=== PATIENT | female | born 1995 | race Hispanic/Latino ===

== ENCOUNTER 2017-07-05 23:02 | Emergency (ER) | payer MEDICAID, OTHER ==
[2017-07-05] MEDS ORDERED: DEXAMETHASONE SOD PHOSPHATE 4 MG/ML 5ML VIAL ONE (23:40)
[2017-07-05] MEDS ORDERED: METHYLPREDNISOLONE SOD SUCC 125MG/2ML VIAL ONE (23:41)
[2017-07-05] MEDS ORDERED: ONDANSETRON ODT 4 MG TAB ONE (23:41)
[2017-07-05] MEDS ORDERED: ACETAMINOPHEN-CODEINE ELIXIR 5 ML UDCUP ONE (23:41)
== END 2017-07-05 23:59 | disposition home or self-care (01) ==
LOC: EDH 23:02
DX: G43.909 Migraine, unspecified, not intractable, without status migrainosus (principal); R11.2 Nausea with vomiting, unspecified
CPT/HCPCS: 96372 ×2; 99284; J1100; J2930

== ENCOUNTER 2017-08-13 23:16 | Emergency (ER) | payer MEDICAID, OTHER ==
[2017-08-13] MEDS ORDERED: ONDANSETRON ODT 4 MG TAB ONE (23:34)
[2017-08-13] MEDS ORDERED: LIDOCAINE HCL 2% VISCOUS 15 ML UDCUP ONE (23:35)
[2017-08-13] MEDS ORDERED: ACETAMINOPHEN-CODEINE ELIXIR 5 ML UDCUP ONE (23:35)
[2017-08-13] MEDS ORDERED: MAGNESIUM HYDROXIDE 30 ML/UDCUP ONE (23:35)
== END 2017-08-13 23:40 | disposition home or self-care (01) ==
LOC: EDH 23:16
DX: K21.9 Gastro-esophageal reflux disease without esophagitis (principal); K29.70 Gastritis, unspecified, without bleeding; Z90.49 Acquired absence of other specified parts of digestive tract

== ENCOUNTER 2017-12-22 21:06 | Emergency (ER) | payer MEDICAID | END 2017-12-22 22:46 | disposition home or self-care (01) | LOC: EDH 21:06 | DX: Z46.89 Encounter for fitting and adjustment of other specified devices (principal); Z90.49 Acquired absence of other specified parts of digestive tract; Z98.890 Other specified postprocedural states; Z79.899 Other long term (current) drug therapy | CPT/HCPCS: 99281 ==

== ENCOUNTER 2018-08-04 22:27 | Emergency (ER) | payer MEDICAID ==
[2018-08-04] MEDS ORDERED: SODIUM CHLORIDE 0.9% 1000ML 1,000 ML IV ONE (22:58)
[2018-08-04 23:05] LABS: BASOPHILS % (AUTO) 1.5 % (0.0-5.0); EOSINOPHILS % (AUTO) 2.4 % (0.0-8.0); HEMATOCRIT 41.7 % (36-48); LYMPHOCYTES % (AUTO) 39.3 % (21.0-51.0); MEAN CORPUSCULAR HEMOGLOBIN 31.5 pg (27.0-33.0); MEAN CORPUSCULAR HGB CONC 34.2 g/dL (32.0-36.0); MONOCYTES % (AUTO) 4.1 % (3.0-13.0); NEUTROPHILS % (AUTO) 52.7 % (40.0-77.0); PLATELET COUNT (AUTO) 181 K/uL (130-400); RED BLOOD CELL COUNT(AUTO) 4.53 MIL/uL (4.00-5.50); RED CELL DISTRIBUTION WIDTH 12.7 % (11.0-15.5); WHITE BLOOD COUNT (AUTO) 7.7 K/uL (4.8-10.8)
[2018-08-04 23:21] LABS: CREATININE 0.7 mg/dL (0.5-1.5); POTASSIUM 3.9 mmol/L (3.5-5.1)
[2018-08-04 23:25] LABS: ALBUMIN 3.8 g/dL (3.5-5.0); BILIRUBIN,TOTAL 0.3 mg/dL (0.2-1.0); TOTAL PROTEIN, SERUM 7.8 g/dL (6.0-8.3)
[2018-08-04] MEDS ORDERED: DiphenhydrAMINE HCL 50 MG/ML VIAL ONE (23:32)
[2018-08-04] MEDS ORDERED: METOCLOPRAMIDE 10 MG/2 ML VIAL ONE (23:32)
[2018-08-04] MEDS ORDERED: KETOROLAC TROMETHAMINE 30MG/ML ONE (23:33)
== END 2018-08-05 00:40 | disposition home or self-care (01) ==
LOC: EDH 22:27
DX: G44.229 Chronic tension-type headache, not intractable (principal); R11.2 Nausea with vomiting, unspecified; Z90.49 Acquired absence of other specified parts of digestive tract; Z98.890 Other specified postprocedural states; Z72.0 Tobacco use
CPT/HCPCS: 36415; 80053; 81025; 85025; 96361; 96374; 96375; 99284; J1200; J1885; J2765; J7030

== ENCOUNTER 2018-09-30 21:52 | Emergency (ER) | payer MEDICAID ==
[2018-09-30] MEDS ORDERED: ONDANSETRON ODT 4 MG TAB ONE (23:08)
[2018-10-01] MEDS ORDERED: KETOROLAC TROMETHAMINE 60 MG/2 ML VIAL ONE (00:02)
[2018-10-01] MEDS ORDERED: DIPHENHYDRAMINE HCL 25 MG CAPSULE ONE (00:02)
[2018-10-01] MEDS ORDERED: METOCLOPRAMIDE 10 MG TABLET ONE (00:02)
== END 2018-10-01 00:29 | disposition home or self-care (01) ==
LOC: EDH 21:52
DX: K52.9 Noninfective gastroenteritis and colitis, unspecified (principal); G43.909 Migraine, unspecified, not intractable, without status migrainosus; Z90.49 Acquired absence of other specified parts of digestive tract
CPT/HCPCS: 81025; 96372; 99284; J1885; Q0163

== ENCOUNTER 2018-11-20 08:29 | Emergency (ER) | payer MEDICAID | END 2018-11-20 09:56 | disposition home or self-care (01) | LOC: EDH 08:29 | DX: S93.492A Sprain of other ligament of left ankle, initial encounter (principal); G43.909 Migraine, unspecified, not intractable, without status migrainosus; Z90.49 Acquired absence of other specified parts of digestive tract; X50.1XXA Overexertion from prolonged static or awkward postures, initial encounter; Y93.89 Activity, other specified; Y92.89 Other specified places as the place of occurrence of the external cause; Y99.8 Other external cause status | CPT/HCPCS: 73610 ==

== ENCOUNTER 2019-02-12 10:20 | Emergency (ER) | payer MEDICAID | END 2019-02-12 11:15 | disposition home or self-care (01) | LOC: EDH 10:20 | DX: K02.9 Dental caries, unspecified (principal); G43.909 Migraine, unspecified, not intractable, without status migrainosus; Z90.49 Acquired absence of other specified parts of digestive tract; Z72.0 Tobacco use ==

== ENCOUNTER 2019-04-03 02:21 | Emergency (ER) | payer MEDICAID ==
[2019-04-03 03:11] LABS: BILIRUBIN,URINE Negative (NEGATIVE); COLOR,URINE Yellow (YELLOW); GLUCOSE, URINE (UA) Negative (NEGATIVE); KETONES,URINE Negative (NEGATIVE); LEUKOCYTE ESTERASE ,URINE Small (NEGATIVE); NITRATE,URINE Negative (NEGATIVE); OCCULT BLOOD,URINE Negative (NEGATIVE); PROTEIN,URINE Negative (NEGATIVE)
[2019-04-03] MEDS ORDERED: FAMOTIDINE/PF 20 MG/2 ML VIAL IV ONE (03:17)
[2019-04-03] MEDS ORDERED: ONDANSETRON HCL 4 MG/2 ML VIAL ONE ×2 (03:17→05:34)
[2019-04-03] MEDS ORDERED: SODIUM CHLORIDE 0.9% 1000ML 1,000 ML IV ONE (03:17)
[2019-04-03 03:20] LABS: HCG,QUAL RESULT NEGATIVE (NEGATIVE)
[2019-04-03 03:26] LABS: BASOPHILS % (AUTO) 0.5 % (0.0-5.0); EOSINOPHILS % (AUTO) 1.5 % (0.0-8.0); HEMATOCRIT 42.3 % (36-48); LYMPHOCYTES % (AUTO) 31.2 % (21.0-51.0); MEAN CORPUSCULAR HEMOGLOBIN 30.8 pg (27.0-33.0); MEAN CORPUSCULAR HGB CONC 32.9 g/dL (32.0-36.0); MEAN CORPUSCULAR VOLUME 93.6 fL (79-99); MONOCYTES % (AUTO) 4.8 % (3.0-13.0); NEUTROPHILS % (AUTO) 61.7 % (40.0-77.0); PLATELET COUNT (AUTO) 208 K/uL (130-400); RED BLOOD CELL COUNT(AUTO) 4.52 MIL/uL (4.00-5.50); RED CELL DISTRIBUTION WIDTH 12.2 % (11.0-15.5); WHITE BLOOD COUNT (AUTO) 7.5 K/uL (4.8-10.8)
[2019-04-03 03:27] LABS: APPEARANCE,URINE SLIGHTLY CLOUDY (CLEAR)
[2019-04-03 03:29] LABS: CREATININE 0.7 mg/dL (0.5-1.5); POTASSIUM 3.9 mmol/L (3.5-5.1)
[2019-04-03 03:31] LABS: BACTERIA,URINE Rare /HPF (None Seen); MUCUS,URINE Rare LPF (None Seen); RBC,URINE 0-1 /HPF (0-1); SQUAMOUS EPITHELIAL CELL,UR Moderate /HPF (0-2); WBC,URINE 0-1 /HPF (0-1)
[2019-04-03 03:34] LABS: ALBUMIN 3.6 g/dL (3.5-5.0); BILIRUBIN,TOTAL 0.6 mg/dL (0.2-1.0); TOTAL PROTEIN, SERUM 7.9 g/dL (6.0-8.3)
[2019-04-03 03:59] LABS: AMPHET/METH SCREEN,URINE NEGATIVE (NEGATIVE); BARBITURATE SCREEN, URINE NEGATIVE (NEGATIVE); BENZODIAZEPINES SCREEN,URINE POSITIVE (NEGATIVE); CANNABINOID SCREEN,URINE NEGATIVE (NEGATIVE); COCAINE SCREEN,URINE NEGATIVE (NEGATIVE); OPIATE SCREEN,URINE NEGATIVE (NEGATIVE); PHENCYCLIDINE SCREEN,URINE NEGATIVE (NEGATIVE)
== END 2019-04-03 05:44 | disposition home or self-care (01) ==
LOC: EDH 02:21
DX: R10.84 Generalized abdominal pain (principal); R11.2 Nausea with vomiting, unspecified; R63.0 Anorexia; G43.909 Migraine, unspecified, not intractable, without status migrainosus; Z90.49 Acquired absence of other specified parts of digestive tract
CPT/HCPCS: 36415; 74177; 80053; 80305; 81001; 81025; 83690; 85025; 96361; 96374; 96375; 96376; 99285; J2405 ×2; J3490; J7030

== ENCOUNTER 2019-04-04 02:25 | Emergency (ER) | payer MEDICAID ==
[2019-04-04] MEDS ORDERED: ORPHENADRINE CITRATE 30 MG/ML ML ONE (02:46)
[2019-04-04] MEDS ORDERED: KETOROLAC TROMETHAMINE 60 MG/2 ML VIAL ONE (02:46)
== END 2019-04-04 03:04 | disposition home or self-care (01) ==
LOC: EDH 02:25
DX: T14.8XXA Other injury of unspecified body region, initial encounter (principal); M62.838 Other muscle spasm; M54.5 Low back pain; G43.909 Migraine, unspecified, not intractable, without status migrainosus; Z90.49 Acquired absence of other specified parts of digestive tract; Z72.0 Tobacco use; V89.2XXA Person injured in unspecified motor-vehicle accident, traffic, initial encounter; Y93.89 Activity, other specified; Y92.488 Other paved roadways as the place of occurrence of the external cause; Y99.8 Other external cause status
CPT/HCPCS: 96372 ×2; 99284; J1885; J2360

== ENCOUNTER 2019-10-18 20:50 | Emergency (ER) | payer MEDICAID ==
[2019-10-18 21:15] LABS: HCG,QUAL RESULT NEGATIVE (NEGATIVE)
[2019-10-18 21:16] LABS: APPEARANCE,URINE Clear (CLEAR); BILIRUBIN,URINE Negative (NEGATIVE); COLOR,URINE Yellow (YELLOW); GLUCOSE, URINE (UA) Negative (NEGATIVE); KETONES,URINE Negative (NEGATIVE); LEUKOCYTE ESTERASE ,URINE Negative (NEGATIVE); NITRATE,URINE Negative (NEGATIVE); OCCULT BLOOD,URINE Negative (NEGATIVE); PH,URINE 5.5 (5.0-8.0); PROTEIN,URINE Negative (NEGATIVE)
== END 2019-10-18 22:10 | disposition home or self-care (01) ==
LOC: EDH 20:50
DX: G43.909 Migraine, unspecified, not intractable, without status migrainosus (principal); F41.1 Generalized anxiety disorder; Z90.49 Acquired absence of other specified parts of digestive tract; Z32.01 Encounter for pregnancy test, result positive
CPT/HCPCS: 36415; 81003; 81025; 84702

== ENCOUNTER 2020-09-06 10:39 | Emergency (ER) | payer MEDICAID ==
[~2020-09-06] VITALS: Ht 167.6 cm; Wt 122.5 kg
[2020-09-06 10:40] VITALS: BP 131/59
[2020-09-06] MEDS ORDERED: HYDROCODONE/ACETAMINOPHEN 10/325 MG TAB PO SCH (13:00)
[2020-09-06] MEDS ORDERED: TRAM1TAB PO (13:54)
[2020-09-06] MEDS ORDERED: NAPR-1180 PO (13:54)
[2020-09-06 14:36] VITALS: BP 117/71
== END 2020-09-06 14:39 | disposition home or self-care (01) ==
LOC: EDH 10:39
DX: S93.401A Sprain of unspecified ligament of right ankle, initial encounter (principal); E66.9 Obesity, unspecified; Z79.899 Other long term (current) drug therapy; Z68.41 Body mass index [BMI] 40.0-44.9, adult; Z90.49 Acquired absence of other specified parts of digestive tract; X50.1XXA Overexertion from prolonged static or awkward postures, initial encounter; Y93.89 Activity, other specified; Y92.89 Other specified places as the place of occurrence of the external cause; Y99.8 Other external cause status
CPT/HCPCS: 36415; 73610; 73620; 84702

== ENCOUNTER 2021-06-16 14:27 | Emergency (ER) | payer BC, MEDICAID ==
[~2021-06-16] VITALS: Ht 167.6 cm; Wt 137.4 kg
[~2021-06-16 14:27] MED LIST: NAPR-1180 PO; TRAM1TAB2 PO
[2021-06-16] MEDS ORDERED: TETANUS/DIPHTHERIA TOXOID [ADULT] 0.5 ML VIAL IM ONE (15:00)
[2021-06-16] MEDS ORDERED: IBUPROFEN 600 MG TABLET PO ONE (15:00)
[2021-06-16] MEDS ORDERED: IBUP-2070 PO (15:25)
[2021-06-16 16:57] VITALS: BP 113/69
== END 2021-06-16 17:07 | disposition home or self-care (01) ==
LOC: EDH 14:27
DX: S93.401A Sprain of unspecified ligament of right ankle, initial encounter (principal); S80.211A Abrasion, right knee, initial encounter; J45.909 Unspecified asthma, uncomplicated; Z79.1 Long term (current) use of non-steroidal anti-inflammatories (NSAID); Z90.49 Acquired absence of other specified parts of digestive tract; W18.39XA Other fall on same level, initial encounter; Y93.89 Activity, other specified; Y92.89 Other specified places as the place of occurrence of the external cause; Y99.8 Other external cause status
CPT/HCPCS: 73562; 73600; 73650; 81025; 90471; 90714

== ENCOUNTER 2021-08-25 22:46 | Emergency (ER) | payer BC, MEDICAID ==
[~2021-08-25] VITALS: Ht 167.6 cm; Wt 140.6 kg
[~2021-08-25 22:46] MED LIST changes: +IBUP-2070 PO
[2021-08-26] MEDS ORDERED: KETOROLAC 15MG/ML VIAL (15MG/ML) IV ONE (04:30)
[2021-08-26] MEDS ORDERED: ONDANSETRON 4MG INJ IVP ONE (04:30)
[2021-08-26] MEDS ORDERED: 0.9%NACL 1000ML 1,000 ML IV ONE (04:30)
[2021-08-26 04:41] LABS: BASOPHILS % (AUTO) 0.6 % (0.0-5.0); EOSINOPHILS % (AUTO) 1.1 % (0.0-8.0); HEMATOCRIT 39.7 % (36-48); LYMPHOCYTES % (AUTO) 22.5 % (21.0-51.0); MEAN CORPUSCULAR VOLUME 91.1 fL (79-99); MONOCYTES % (AUTO) 5.3 % (3.0-13.0); PLATELET COUNT (AUTO) 145 K/uL (130-400); RED BLOOD CELL COUNT(AUTO) 4.36 MIL/uL (4.00-5.50); RED CELL DISTRIBUTION WIDTH 12.5 % (11.0-15.5); WHITE BLOOD COUNT (AUTO) 6.2 K/uL (4.8-10.8)
[2021-08-26 04:59] LABS: CREATININE 0.6 mg/dL (0.5-1.5); POTASSIUM 3.8 mmol/L (3.5-5.1)
[2021-08-26 05:03] LABS: ALBUMIN 3.6 g/dL (3.5-5.0); BILIRUBIN,TOTAL 0.5 mg/dL (0.2-1.0)
[2021-08-26 07:26] LABS: BILIRUBIN,URINE SMALL (NEGATIVE); COLOR,URINE YELLOW (YELLOW); GLUCOSE, URINE (UA) NEGATIVE (NEGATIVE); KETONES,URINE NEGATIVE (NEGATIVE); LEUKOCYTE ESTERASE ,URINE NEGATIVE (NEGATIVE); NITRATE,URINE NEGATIVE (NEGATIVE); OCCULT BLOOD,URINE NEGATIVE (NEGATIVE); PH,URINE 5.5 (5.0-8.0); PROTEIN,URINE NEGATIVE (NEGATIVE); UROBILINOGEN,URINE 0.2 mg/dL (0.2-1.0)
[2021-08-26 07:50] LABS: APPEARANCE,URINE SLIGHTLY CLOUDY (CLEAR)
[2021-08-26 07:59] LABS: BACTERIA,URINE Few /HPF (None Seen)
[2021-08-26 08:00] LABS: RBC,URINE 0-1 /HPF (0-1)
[2021-08-26] MEDS ORDERED: FAMOTIDINE 20MG VIAL IV ONE (08:30)
[2021-08-26] MEDS ORDERED: MORPHINE 4 MG SYG IVP ONE (08:30)
[2021-08-26 09:31] VITALS: BP 105/59
[2021-08-26] MEDS ORDERED: ONDA4TAB10 PO (09:34)
[2021-08-26] MEDS ORDERED: HYOS-27 SL (09:34)
[2021-08-26] MEDS ORDERED: FAMO-136 PO (09:34)
== END 2021-08-26 11:26 | disposition home or self-care (01) ==
LOC: EDH 22:46
DX: R50.9 Fever, unspecified (principal); R10.9 Unspecified abdominal pain; R11.10 Vomiting, unspecified; E66.01 Morbid (severe) obesity due to excess calories; Z68.43 Body mass index [BMI] 50.0-59.9, adult; Z20.822 Contact with and (suspected) exposure to COVID-19; Z79.899 Other long term (current) drug therapy
CPT/HCPCS: 36415; 74176; 80053; 81001; 83690; 84703; 85025; 87635; 87804 ×2; 96361; 96374; 96375; 99284; C9803; J1885; J2270; J2405; J3490; J7030

== ENCOUNTER 2022-10-28 19:50 | Emergency (ER) | payer BC, MEDICAID ==
[~2022-10-28] VITALS: Ht 167.6 cm; Wt 139.0 kg
[~2022-10-28 19:50] MED LIST changes: +FAMO-136 PO; +HYOS-27 SL; +ONDA4TAB10 PO
[2022-10-28] MEDS ORDERED: IBUPROFEN 800 MG TAB ONE (20:13)
[2022-10-28] MEDS ORDERED: IBUPROFEN 800 MG TAB PO ONE (20:30)
[2022-10-28 20:56] LABS: BASOPHILS # (AUTO) 0.05 K/uL (0.00-0.20); BASOPHILS % (AUTO) 0.5 % (0.0-5.0); EOSINOPHILS # (AUTO) 0.12 K/uL (0.00-0.70); EOSINOPHILS % (AUTO) 1.2 % (0.0-8.0); HEMATOCRIT 39.5 % (36-48); IMMATURE GRANULOCYTE ABSOLUTE 0.04 K/uL (0-1); LYMPHOCYTES # (AUTO) 2.4 K/uL (1.0-4.8); MEAN CORPUSCULAR HGB CONC 32.9 g/dL (32.0-36.0); MEAN CORPUSCULAR VOLUME 91.2 fL (79-99); MONOCYTES # (AUTO) 0.5 K/uL (0.1-1.0); MONOCYTES % (AUTO) 4.8 % (3.0-13.0); NEUTROPHILS # (AUTO) 7.2 K/uL (1.8-7.7); NEUTROPHILS % (AUTO) 70.1 % (40.0-77.0); PLATELET COUNT (AUTO) 167 K/uL (130-400); RED BLOOD CELL COUNT(AUTO) 4.33 MIL/uL (4.00-5.50); RED CELL DISTRIBUTION WIDTH 12.1 % (11.0-15.5); WHITE BLOOD COUNT (AUTO) 10.3 K/uL (4.8-10.8)
[2022-10-28] MEDS ORDERED: IOHEXOL-350 75 ML VIAL IV ONE (20:58)
[2022-10-28 21:03] LABS: CREATININE 0.7 mg/dL (0.5-1.5); POTASSIUM 3.6 mmol/L (3.5-5.1)
[2022-10-28 21:07] LABS: ALBUMIN 3.3 g/dL (3.5-5.0); BILIRUBIN,TOTAL 0.3 mg/dL (0.2-1.0); TOTAL PROTEIN, SERUM 7.4 g/dL (6.0-8.3)
[2022-10-28] MEDS ORDERED: ZOSYN 3.375GM +NS 50ML IVPB ONE (22:30)
[2022-10-28] MEDS ORDERED: VANCOMYCIN KIT 1 GM/250 ML IV.KIT IV ONE (22:30)
[2022-10-28] MEDS ORDERED: LIDOCAINE HCL 1% 20 ML VIAL INJ SCH (22:30)
[2022-10-28] MEDS ORDERED: ZOSYN 3.375GM+NS 50ML 50 ML IVPB ONE (22:45)
[2022-10-28] MEDS ORDERED: SULF1TAB42 PO (23:05)
[2022-10-28] MEDS ORDERED: IBUP-1493 PO (23:05)
[2022-10-28] MEDS ORDERED: AMOX1TAB16 PO (23:05)
[2022-10-29 02:51] VITALS: BP 135/74; PULSE 74; RESP 16; O2SAT 98
== END 2022-10-29 02:52 | disposition home or self-care (01) ==
LOC: EDH 19:50
DX: L02.211 Cutaneous abscess of abdominal wall (principal)
CPT/HCPCS: 99284; 74177; 96365; 10060; 96375; 80053; 84703; 85025; 87040 ×2; 83605 ×2; 36415; J2543; J3370; Q9967

== ENCOUNTER 2022-10-31 17:43 | Emergency (ER) | payer MEDICAID ==
[~2022-10-31] VITALS: Ht 167.6 cm; Wt 137.9 kg
[~2022-10-31 17:43] MED LIST changes: +AMOX1TAB16 PO; +IBUP-1493 PO; +SULF1TAB42 PO
[2022-10-31 18:40] VITALS: BP 118/72; PULSE 72; RESP 18
== END 2022-10-31 19:49 | disposition home or self-care (01) ==
LOC: EDH 17:43
DX: L02.211 Cutaneous abscess of abdominal wall (principal); Z79.1 Long term (current) use of non-steroidal anti-inflammatories (NSAID); Z90.49 Acquired absence of other specified parts of digestive tract
CPT/HCPCS: 99281

== ENCOUNTER 2023-02-19 17:52 | Emergency (ER) | payer MEDICAID | END 2023-02-19 21:11 | disposition left against medical advice (07) | LOC: EDH 17:52 | DX: R50.9 Fever, unspecified (principal); R05.9 Cough, unspecified; Z53.21 Procedure and treatment not carried out due to patient leaving prior to being seen by health care provider ==

== ENCOUNTER 2024-06-21 09:58 | Emergency (ER) | payer SELFPAY ==
[~2024-06-21] VITALS: Ht 167.6 cm; Wt 138.3 kg
[~2024-06-21 09:58] MED LIST changes: +HYOS-16 SL; -HYOS-27 SL; +ONDA-243 PO; -ONDA4TAB10 PO
--- NOTE | 2024-06-21 12:40 | NUR ---
PT MOVED INTO [facility] AT THIS TIME
[2024-06-21] MEDS: ketOROlac 30MG VIAL (30MG/ML) IM ONE (12:44)
[2024-06-21] MEDS: cefTRIAXone 1G VIAL IM ONE (12:45)
[2024-06-21] MEDS: HYDROcodone/acetaMINOPHEN 10/325 MG TAB PO ONE (12:45)
[2024-06-21] MEDS ORDERED: AMOX1TAB16 PO (12:58)
[2024-06-21] MEDS ORDERED: KETO10TA2 PO (12:58)
--- NOTE | 2024-06-21 12:58 | ERN ---
General Chief Complaint: Tooth Ache/Pain Stated Complaint: TOOTHACHE Time Seen by MD: 10:01 Time Seen by Midlevel: 10:01 Source: patient History of Present Illness Initial Comments The patient is a 28-year-old female presenting to the emergency department with a toothache to her left lower molar. She states this has been ongoing for over a week but has been unable to see her primary care doctor or dentist for this due to financial issues. Denies any fever, chills, or any other symptoms at this time. Allergies: Coded Allergies: No Known Allergies (Unverified Allergy, Unknown, 06/16/14) No Known Drug Allergies (Unverified Allergy, Unknown, 04/04/19) Home Meds Active Scripts Amoxicillin/Potassium Clav (Amox Tr-K Clv 875-125 mg Tab) 875 Mg-125 Mg Tablet, 1 EACH PO BID for 10 Days, #20 TAB 0 Refills Prov:PLACIDO JIMENEZ 06/21/24 Ketorolac Tromethamine (Ketorolac Tromethamine) 10 Mg Tablet, 1 TAB PO TID for pain for 5 Days, #15 TAB 0 Refills Prov:PLACIDO JIMENEZ 06/21/24 Ibuprofen (Motrin/Advil) 800 Mg Tab, 800 MG PO TID, #30 TAB Prov:ROBI MALIK MD 10/28/22 Sulfamethoxazole/Trimethoprim (Bactrim Ds Tablet) 1 Each Tablet, 1 TAB PO BID for 10 Days, #20 TAB 0 Refills Prov:ROBI MALIK MD 10/28/22 Amoxicillin/Potassium Clav (Amox Tr-K Clv 875-125 mg Tab) 1 Each Tablet, 1 EACH PO BID, #20 TAB Prov:ROBI MALIK MD 10/28/22 Famotidine (Pepcid) 20 Mg Tablet, 20 MG PO DAILY for 15 Days, #15 TAB 0 Refills Prov:HARPER YU MD 08/26/21 Hyoscyamine Sulfate (Hyoscyamine Sulfate) 0.125 Mg Tab.subl, 0.125 MG SL TID PRN for CRAMP, #15 TAB.SL 0 Refills Prov:HARPER YU MD 08/26/21 Ondansetron (Ondansetron Odt) 4 Mg Tab.rapdis, 4 MG PO TID PRN for NAUSEA, #15 TAB 0 Refills Prov:HARPER YU MD 08/26/21 Ibuprofen (Ibuprofen) 600 Mg Tablet, 600 MG PO Q6H PRN for PAIN, #15 TAB Prov:EDE MELENDEZ 06/16/21 Tramadol HCl/Acetaminophen (Ultracet Tablet) 1 Each Tablet, 1 EACH PO QID, #30 TAB Prov:ELY SWIFT 09/06/20 Naproxen (Naprosyn) 500 Mg Tablet, 500 MG PO BIDPC, #60 TAB Prov:ELY SWIFT 09/06/20 Past Medical History Past Medical History: Abscess, UTI Medical History Other: HEART MURMUR, GESTATIONAL DIABETES Past Surgical History: Cholecystectomy Family History Family History: Negative Social History Social History: Negative, Other Female( History) : 2 Para: 2 Aborts: 0 ROS Dictation CONSTITUTIONAL: Negative except for HPI HEAD/FACE: Negative except for HPI EENT: Negative except for HPI RESPIRATORY: Negative except for HPI GASTROINTESTINAL/ABDOMINAL: Negative except for HPI GENITOURINARY: Negative except for HPI MUSCULOSKELETAL: Negative except for HPI INTEGUMENTARY: Negative except for HPI NEUROLOGICAL/PSYCH: Negative except for HPI HEMATOLOGIC/LYMPHATIC: Negative except for HPI All Systems Negative, Except as noted above. 13 point review of systems assessed and all negative except for above. Physical Exam Physical Exam Dictation PHYSICAL EXAM: GENERAL: alert,, awake oriented x 3 HEENT: EOMI, Sclera non icteric, moist mucosa, poor dentition, gingival swelling to the left lower molar, multiple dental caries NECK: Supple, no JVD, trachea midline LUNGS: Clear breath sounds bilaterally. No wheezes HEART: Regular rate and rhythm. Normal S1 and S2, without murmurs ABD: Abdomen soft, nontender. Bowel sounds present EXT: No clubbing or cyanosis, NEURO: Alert and oriented to person, follows commands Results Laboratory and Microbiology Lab and Micro Result Laboratory Tests Test 06/21/24 12:05 Urine HCG, Qualitative NEGATIVE (NEGATIVE) Labs Reviewed?: Yes MDM MDM: 28-year-old female with no significant past medical history presenting to the emergency department for evaluation of dental pain to her left lower molar. Pain has been ongoing for week but has progressively worsened. Patient unable see your primary care doctor or dentist due to financial issues. On exam there is poor dentition with multiple caries seen throughout. There was gingival swelling to the left lower molar concerning for a dental abscess. Patient was given pain medication in the emergency department along with 1 g of ceftriaxone IM. The patient will be treated as an outpatient with Augmentin. Patient was also given ketorolac for outpatient management. Patient needs to follow up with her PCP and dentist. Return precautions discussed Differential diagnosis: Poor dentition, dental abscess, gingival abscess There are no social concerns with this patient. Prescription drug management Prescriptions will include: Amoxicillin and ketorolac Medical management and examination interpretation discussions were had by me with other qualified healthcare professionals as indicated for the patient's car e. ED Course Orders Procedure Category Date Status Time ,Urine Test LAB 06/21/24 Complete 10:18 Ketorolac PHA 06/21/24 Complete Tromethamine 30mg/Ml 10:30 Hydrocodone/Apap PHA 06/21/24 Complete 10/325 Tab ([place] 10) 10:30 Ceftriaxone 1g Vial PHA 06/21/24 Complete (Rocephine 1g Inj) 10:30 Current Medications Medications (Trade) Dose Ordered Sig/Nati Route PRN Reason Start Time Stop Time Status Last Admin Dose Admin Acetaminophen/ Hydrocodone Bitart (NORco 10) 1 tab ONCE ONCE PO 06/21/24 10:30 06/21/24 10:31 DC 06/21/24 12:45 Ceftriaxone Sodium (ROCEphine 1G INJ) 1 gm ONCE ONCE IM 06/21/24 10:30 06/21/24 10:31 DC 06/21/24 12:45 Ketorolac Tromethamine (toRADol) 30 mg ONCE ONCE IM 06/21/24 10:30 06/21/24 10:31 DC 06/21/24 12:44 Vital Signs Date Time Temp Pulse Resp B/P (MAP) Pulse Ox O2 Delivery O2 Flow Rate FiO2 06/21/24 13:05 99.0 78 20 128/69 98 Room Air* 0 21 06/21/24 10:01 98.8 69 20 140/85 98 DX & DISP Disposition: Discharge Departure Impression: Primary Impression: Dental abscess Condition: Stable Scripts Amoxicillin/Potassium Clav (Amox Tr-K Clv 875-125 mg Tab) 875 Mg-125 Mg Tablet 1 EACH PO BID for 10 Days, #20 TAB 0 Refills Prov: PLACIDO JIMENEZ 06/21/24 Ketorolac Tromethamine (Ketorolac Tromethamine) 10 Mg Tablet 1 TAB PO TID for pain for 5 Days, #15 TAB 0 Refills Prov: PLACIDO JIMENEZ 06/21/24 Additional Instructions: Your test was negative. I have given you a prescription for Toradol and amoxicillin for outpatient management. You need to see a dentist for this issue. Return to the ER for any new or worsening symptoms Referrals: PABLITO MONTES DE OCA (PCP) Time of Disposition: 12:55 I have reviewed the case, and I agree with, Diagnosis and Plan I performed the substantive portion of the visit. I have reviewed and personally made and approve the management plan that is documented in the note by myself or the TEO. I acknowledge for responsibility for the patient's management plan. PLACIDO JIMENEZ Jun 21, 2024 12:58 KISHORE DSOUZA DO Jun 21, 2024 18:19
[2024-06-21 13:05] VITALS: BP 128/69; PULSE 78; RESP 20; TEMP 98.9; O2SAT 98
== END 2024-06-21 13:13 | disposition home or self-care (01) ==
LOC: EDH 09:58
DX: K04.7 Periapical abscess without sinus (principal); Z79.1 Long term (current) use of non-steroidal anti-inflammatories (NSAID); Z87.440 Personal history of urinary (tract) infections; Z90.49 Acquired absence of other specified parts of digestive tract; Z79.899 Other long term (current) drug therapy
CPT/HCPCS: 99284; 81025; 96372 ×2; J1885; J0696

== ENCOUNTER 2024-12-17 11:55 | Emergency (ER) | payer OTHER ==
[~2024-12-17] VITALS: Ht 167.6 cm; Wt 136.1 kg
[~2024-12-17 11:55] MED LIST changes: +CEPH500B PO; +IBUP-1492 PO; -IBUP-2070 PO; +KETO10TA2 PO
[2024-12-17 12:39] LABS: NUCLEATED RED BLOOD CELLS 0.0 % (0.0-0.19); PLATELET COUNT (AUTO) 167.0 K/uL (130-400); RED BLOOD CELL COUNT(AUTO) 3.96 MIL/uL (4.00-5.50); RED CELL DISTRIBUTION WIDTH 13.0 % (11.0-15.5); WHITE BLOOD COUNT (AUTO) 6.5 K/uL (4.8-10.8)
[2024-12-17 12:56] LABS: ASPARTATE AMINOTRANSFERASE 29.0 U/L (10-37); CREATININE 0.5 mg/dL (0.5-1.0); GLOMERULAR FILTR. RATE CALC 129.0 mL/min (>90); GLUCOSE,RANDOM 238.0 mg/dL (70-105); SODIUM SERUM 138.0 mmol/L (136-145); TOTAL PROTEIN, SERUM 7.2 g/dL (6.0-8.3); UREA NITROGEN, BLOOD 15.0 mg/dL (7-18)
--- NOTE | 2024-12-17 13:05 | NUR ---
PT REFUSED EKG TO BE DONE. AWARE.
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
--- NOTE | 2024-12-17 14:47 | HMCIMG ---
EXAM: CT Head Without IV contrast. CLINICAL HISTORY: headache, nausea TECHNIQUE: Axial computed tomography images of the head/brain without intravenous contrast. COMPARISON: None provided. FINDINGS: BRAIN: No evidence of acute hemorrhage. No mass lesion. No CT evidence for acute territorial infarct. No midline shift or extra-axial collections. VENTRICLES: No hydrocephalus. ORBITS: The orbits are unremarkable. SINUSES AND MASTOIDS: The paranasal sinuses and mastoid air cells are clear. BONES: No fracture. SOFT TISSUES: Unremarkable. IMPRESSION: No acute intracranial abnormality. /[place]
[2024-12-17 15:15] VITALS: BP 123/84; PULSE 78; RESP 20; TEMP 98.6; O2SAT 99
[2024-12-17] MEDS ORDERED: ACET-66 PO (15:38)
[2024-12-17] MEDS ORDERED: ONDA-104 PO (15:38)
== END 2024-12-17 16:14 | disposition home or self-care (01) ==
LOC: EDH 11:55
DX: R51.9 Headache, unspecified (principal); R11.0 Nausea; H53.8 Other visual disturbances; R20.0 Anesthesia of skin; E11.9 Type 2 diabetes mellitus without complications; Z90.49 Acquired absence of other specified parts of digestive tract; Z79.1 Long term (current) use of non-steroidal anti-inflammatories (NSAID); V89.2XXA Person injured in unspecified motor-vehicle accident, traffic, initial encounter; Y93.89 Activity, other specified; Y92.89 Other specified places as the place of occurrence of the external cause; Y99.8 Other external cause status
CPT/HCPCS: 99285; 96374; 70450; 80076; 80048; 85027; 82948; 36415; 96372; J2405; J2270

== ENCOUNTER 2025-02-13 09:25 | Emergency (ER) | payer SELFPAY ==
[~2025-02-13] VITALS: Ht 167.6 cm; Wt 136.1 kg
[~2025-02-13 09:25] MED LIST changes: +ACET-66 PO; +ONDA-104 PO
[2025-02-13 09:32] VITALS: RESP 12
--- NOTE | 2025-02-13 09:32 | NUR ---
PATIENT IN ROOM
--- NOTE | 2025-02-13 09:40 | ERN ---
General Chief Complaint: Hand Problem/Injury Stated Complaint: LT HAND PAIN Time Seen by MD: 09:26 Source: patient History of Present Illness Initial Comments Patient is a 29-year-old female coming in complaining of left hand pain. Per patient she tripped and landed in her left hand now states that she has a tenderness on her left hand was trying to move her fingers. Allergies: Coded Allergies: No Known Allergies (Unverified Allergy, Unknown, 06/16/14) No Known Drug Allergies (Unverified Allergy, Unknown, 04/04/19) Home Meds Active Scripts Acetaminophen (Tylenol) 500 Mg Tab, 500 MG PO [id number] PRN for HEADACHE for 5 Days, #10 TAB Prov:MARSHALL AMBROSIO MD 12/17/24 Ondansetron HCl (Ondansetron HCl) 4 Mg Tablet, 4 MG PO [id number] PRN for NAUSEA/VOMITING for 5 Days, #10 TAB Prov:MARSHALL AMBROSIO MD 12/17/24 Cephalexin Monohydrate (Keflex) 500 Mg Cap, 500 MG PO QID for 7 Days, #28 CAP Prov:GEORGINA PATIÑO MD 08/17/24 Amoxicillin/Potassium Clav (Amox Tr-K Clv 875-125 mg Tab) 875 Mg-125 Mg Tablet, 1 EACH PO BID for 10 Days, #20 TAB 0 Refills Prov:PLACIDO JIMENEZ 06/21/24 Ketorolac Tromethamine (Ketorolac Tromethamine) 10 Mg Tablet, 1 TAB PO TID for pain for 5 Days, #15 TAB 0 Refills Prov:PLACIDO JIMENEZ 06/21/24 Ibuprofen (Motrin/Advil) 800 Mg Tab, 800 MG PO TID, #30 TAB Prov:ROBI MALIK MD 10/28/22 Sulfamethoxazole/Trimethoprim (Bactrim Ds Tablet) 1 Each Tablet, 1 TAB PO BID for 10 Days, #20 TAB 0 Refills Prov:ROBI MALIK MD 10/28/22 Amoxicillin/Potassium Clav (Amox Tr-K Clv 875-125 mg Tab) 1 Each Tablet, 1 EACH PO BID, #20 TAB Prov:ROBI MALIK MD 10/28/22 Famotidine (Pepcid) 20 Mg Tablet, 20 MG PO DAILY for 15 Days, #15 TAB 0 Refills Prov:HARPER YU MD 08/26/21 Hyoscyamine Sulfate (Hyoscyamine Sulfate) 0.125 Mg Tab.subl, 0.125 MG SL TID PRN for CRAMP, #15 TAB.SL 0 Refills Prov:HARPER YU MD 08/26/21 Ondansetron (Ondansetron Odt) 4 Mg Tab.rapdis, 4 MG PO TID PRN for NAUSEA, #15 TAB 0 Refills Prov:HARPER YU MD 08/26/21 Ibuprofen (Ibuprofen) 600 Mg Tablet, 600 MG PO Q6H PRN for PAIN, #15 TAB Prov:EDE MELENDEZ 06/16/21 Tramadol HCl/Acetaminophen (Ultracet Tablet) 1 Each Tablet, 1 EACH PO QID, #30 TAB Prov:ELY SWIFT 09/06/20 Naproxen (Naprosyn) 500 Mg Tablet, 500 MG PO BIDPC, #60 TAB Prov:ELY SWIFT 09/06/20 Past Medical History Past Medical History: Diabetes-Type II Medical History Other: HEART MURMUR, GESTATIONAL DIABETES Past Surgical History: Cholecystectomy Family History Family History: Negative Social History Social History: Negative, Other Female( History) : 2 Para: 2 Aborts: 0 ROS Dictation CONSTITUTIONAL: No chills, no fever, no weakness, no diaphoresis, no malaise. HEAD/FACE: No signs of trauma. EENT: No eye pain, no blurred vision, no tearing, no double vision, no ear pain, no ear discharge, no nose pain, no nasal congestion, no throat pain, no throat swelling, no mouth pain. RESPIRATORY: No cough, no orthopnea, no SOB, no stridor, no wheezing. CARDIOVASCULAR: No chest pain, no edema, no palpitations, no syncope. GASTROINTESTINAL/ABDOMINAL: No abdominal pain, no constipation, no diarrhea, no nausea, no vomiting. GENITOURINARY: No abnormal discharge, no dysuria, no frequent urination, no hematuria. No complaints of pain in the genitals. MUSCULOSKELETAL: No back pain, no gout, no joint pain, no joint swelling, muscle pain, no muscle stiffness, no neck pain. INTEGUMENTARY: No change in color, no change in hair/nails, no dryness, no lesion, no lumps, no rash. NEUROLOGICAL/PSYCH: No anxiety, not depressed, no emotional problem, no headache, no numbness, no pre-existing deficit, no history of seizures, no tremors, no weakness. HEMATOLOGIC/LYMPHATIC: Not anemic, no history of blood clots, no apparent bl eeding, no bruising, glands not swollen. All Systems Negative, Except as Noted. Physical Exam Physical Exam Dictation VITAL SIGNS: Reviewed. GENERAL APPEARANCE: Alert, oriented x3, no acute distress, obese. HEAD AND FACE: Non-traumatic. EYES: PERRL, pink conjunctivas, eyelid no trauma, anterior chamber clear. EARS: Pinnas intact and no signs of trauma or erythema. Ear canals clear and no discharge. TMs no erythema. NOSE: No discharge, no bleeding. OROPHARYNX: Mouth normal, teeth no caries, tongue pink. Pharynx clear, no erythema. Tonsils no exudates, no abscesses noted. Mucous membrane moist. NECK: Supple, non-tender, no thyromegaly, no masses, no JVD, no bruits. BREAST: Deferred. CHEST: No tenderness, no crepitus, no paradoxical movement, no retractions. LUNGS: Clear, well-ventilated, symmetric, no rales, no wheezing, no rhonchi, no stridor, good breath sounds bilaterally. HEART: Regular rate, regular rhythm, no murmur, no gallops. VASCULAR: No peripheral edema. ABDOMEN: Soft, positive bowel sounds, nondistended, no guarding, nontender, no rebound, no masses no hepatomegaly, no splenomegaly, no Tejada's sign, no hernias. RECTAL: Deferred. GENITAL: Deferred. NEUROLOGICAL: Normal speech, gross motor function intact, gross sensory function intact. MUSCULOSKELETAL: Neck nontender, full range of motion, back nontender, full ran ge of motion. EXTREMITIES: Nontender, full range of motion. Left hand Tenderness on palpation SKIN: Color pink, dry, no turgor, no rash, no lacerations, no abrasions, no contusions. LYMPHATICS: Deferred. Results Laboratory and Microbiology Labs Reviewed?: Yes EKG/XRAY/US/CT/MRI X-RAY Comment X-ray left hand-NAD MDM MDM: Differential diagnosis: Hand contusion, and strain, wrist strain, Rationale: Tests considered and ordered secondary to shared decision making include: Previous outside records reviewed: Old ER visits. Risk of complication and/or morbidity or mortality of patient management: None Medications-Per medication reconciliation Need for hospitalization: Patient does not meet criteria for hospitalization. Need for emergency major/minor surgery: No Patient is a 29-year-old female coming in complaining of left hand pain. States he tripped and landed in her left hand coming in complaining of left hand splint was placed to help with the discomfort x-ray did not disclose acute findings. Patient will be discharged in stable condition. I did advised her appropriate follow up with PCP for ongoing evaluation and management. ED Course Orders Procedure Category Date Status Time Hand 3+Vws Lt RAD 02/13/25 Taken 09:26 Naproxen (Naprosyn) PHA 02/13/25 Complete 09:30 Boxer Splint AP.ER 02/13/25 In Process 09:48 Current Medications Medications (Trade) Dose Ordered Sig/Nati Route PRN Reason Start Time Stop Time Status Last Admin Dose Admin Naproxen (Naprosyn) 375 mg ONCE ONCE PO 02/13/25 09:30 02/13/25 09:34 DC 02/13/25 09:44 Vital Signs Date Time Temp Pulse Resp B/P (MAP) Pulse Ox O2 Delivery O2 Flow Rate FiO2 02/13/25 09:32 98.6 72 12 142/83 99 Room Air* 0 21 02/13/25 09:26 98.1 72 20 103/61 99 Room Air 0 DX & DISP Disposition: Discharge Departure Impression: Primary Impression: Contusion of left hand Condition: Stable Scripts Naproxen (Naproxen) 375 Mg Tablet. 375 MG PO BID for 7 Days, #14 TAB Prov: NORBERTO CHRISTIAN MD 02/13/25 Additional Instructions: FOLLOW-UP WITH PRIMARY CARE PROVIDER IN 1 TO 2 DAYS. TAKE MEDICATIONS DIRECTED HERE IN THE EMERGENCY ROOM. OKAY TO CONTINUE HOME MEDICATIONS UNLESS OTHERWISE DISCUSSED DURING YOUR VISIT IN THE EMERGENCY ROOM TODAY. RETURN TO YOUR NEAREST EMERGENCY ROOM IF SYMPTOMS WORSEN OR IF THERE IS NO IMPROVEMENT. CALL 911 IF YOU NEED IMMEDIATE ASSISTANCE. TAKE TYLENOL [id number] NEEDED AND IF NO CONTRAINDICATIONS ARE PRESENT. INCREASE ORAL HYDRATION. A WOUND CULTURE OR URINE CULTURE WAS ORDERED HERE IN THE EMERGENCY ROOM DEPARTMENT PLEASE FOLLOW-UP WITH PRIMARY CARE PROVIDER AND ADVISE THEM TO GET REPORTS FROM OUR FACILITY. IF YOU HAD ANY SONAM WRAP/SPLINTS THAT WERE APPLIED HERE, PLEASE DO NOT REMOVE THEM UNTIL YOU SEE YOUR PRIMARY CARE OR SPECIALTY. Referrals: Referrals: PABLITO MONTES DE OCA (PCP) Time of Disposition: 09:50 NORBERTO CHRISTIAN MD Feb 13, 2025 09:40
[2025-02-13] MEDS: NAPROXEN 250 MG TAB PO ONE (09:44)
[2025-02-13] MEDS ORDERED: NAPR-1505 PO (09:52)
--- NOTE | 2025-02-13 10:05 | HMCIMG ---
EXAM: CR left Hand, 3 View. CLINICAL HISTORY: fall COMPARISON: None provided. FINDINGS: BONES: Acute fracture of the distal phalanx of the fifth finger with an orthopedic fixation. JOINTS: No evidence of dislocation. The joint spaces are normal. SOFT TISSUES: The soft tissues appear within normal limits. No radiopaque foreign body is seen. IMPRESSION: Fracture of the distal phalanx of the fifth finger with orthopedic fixation. /Mcloud
[2025-02-13 10:58] VITALS: BP 128/86; PULSE 73; TEMP 98.3; O2SAT 13
== END 2025-02-13 11:02 | disposition home or self-care (01) ==
LOC: EDH 09:25
DX: S60.222A Contusion of left hand, initial encounter (principal); E11.9 Type 2 diabetes mellitus without complications; Z79.1 Long term (current) use of non-steroidal anti-inflammatories (NSAID); Z86.32 Personal history of gestational diabetes; Z90.49 Acquired absence of other specified parts of digestive tract; W01.0XXA Fall on same level from slipping, tripping and stumbling without subsequent striking against object, initial encounter; Y93.89 Activity, other specified; Y92.89 Other specified places as the place of occurrence of the external cause; Y99.8 Other external cause status
CPT/HCPCS: 29125; 73130; 99283